=== PATIENT | male | born 1985 | race Caucasian/White ===

== ENCOUNTER 2018-12-25 09:48 | Day surgery (SDC) | payer OTHER ==
[2018-12-24 12:48] VITALS: BMI 23.1
[2018-12-25 10:06] VITALS: PULSE 88; RESP 16; TEMP 99.1; O2SAT 100
--- NOTE | 2018-12-25 10:18 | CP.SDSHP ---
Same Day Surgery H & P - History Proposed Procedure: EGD Pre-Op Diagnosis: abdominal pain - Allergies Allergies: Allergies Sulfa (Sulfonamide Antibiotics) Allergy (Verified 12/24/18 12:47) RASH - Physical Exam General Appearance: NAD Vital Signs: Vital Signs 12/25/18 10:02 Temperature 99.1 F Pulse Rate 88 Respiratory 16 Rate Blood Pressure 140/76 O2 Sat by Pulse 100 Oximetry Mental Status: Alert & Oriented x3 Neuro: WNL Heart: WNL Lungs: WNL GI: WNL - {Optional Preform as Required} Abdomen: WNL - Impression Pt. Evaluated Today:Candidate for Anesthesia & Procedure: Yes - Date & Time Date: 12/25/18 Time: 10:18 Short Stay Discharge - Short Stay Discharge Admitting Diagnosis/Reason for Visit: EPIGASTRIC PAIN Disposition: HOME/ ROUTINE
[2018-12-25] MEDS ORDERED: Propofol 10 mg/ml Inj (20 ML) ONE (10:20)
[2018-12-25] MEDS ORDERED: Midazolam 2 MG/2 ML VIAL ONE (10:20)
[2018-12-25 11:05] VITALS: BP 133/71
== END 2018-12-25 11:31 | disposition home or self-care (01) ==
LOC: C.ENDO 09:48
PROVIDERS: ATTEND Internal Medicine Gastroenterology
DX: R10.13 Epigastric pain (principal); K29.70 Gastritis, unspecified, without bleeding
CPT/HCPCS: 43239; 88305; 88313; 88342; J2250; J2704